=== PATIENT | male | born 1980 | race Caucasian/White ===

== ENCOUNTER 2023-05-20 08:39 | Emergency (ER) | payer MEDICAID ==
[~2023-05-20] VITALS: Ht 185.4 cm; Wt 109.0 kg
[2023-05-20 09:49] VITALS: BP 125/77; PULSE 97; TEMP 98.9; O2SAT 97
[2023-05-20] MEDS: LIDOcaine 1% 30ml preserv. free vial SQ STA (10:18)
[2023-05-20 10:30] VITALS: RESP 18
[2023-05-20] MEDS ORDERED: CEPH-585 PO (10:57)
[2023-05-20] MEDS ORDERED: HYDR-3965 PO (10:57)
[2023-05-21] MEDS ORDERED: silver sulfadiazine cream 400gm jar TP SCH (08:00)
== END 2023-05-20 11:27 | disposition home or self-care (01) ==
LOC: ER 08:40
DX: T23.201A Burn of second degree of right hand, unspecified site, initial encounter (principal); Z88.0 Allergy status to penicillin; Z56.0 Unemployment, unspecified; X08.8XXA Exposure to other specified smoke, fire and flames, initial encounter; Y93.89 Activity, other specified; Y92.89 Other specified places as the place of occurrence of the external cause; Y99.8 Other external cause status
CPT/HCPCS: 16020; 16025; 99283